=== PATIENT | female | born 1980 | race African-American/Black ===

== ENCOUNTER 2020-01-11 18:36 | Emergency (ER) | payer MEDICAID, OTHER ==
[2020-01-11] MEDS ORDERED: IBUPROFEN 800 MG TABLET PO ONE (19:13)
[2020-01-11] MEDS ORDERED: NORMAL SALINE 1000 ML 1,000 ML IV ONE (19:13)
--- NOTE | 2020-01-11 19:14 | ER Document Report ---
ED Medical Screen (RME) - General Chief Complaint: Weakness Stated Complaint: WEAKNESS Time Seen by Provider: 01/11/20 19:07 Primary Care Provider: LES BERNAL [Primary Care Provider] - Follow up as needed Information source: Patient Notes: Patient presents complaining of fever for the past 5 days with nausea and dark- colored urine. Patient reports chills. Patient denies any pain symptoms. Patient denies any cough or cold symptoms. Patient states she had a headache 5 days ago but none since then. I have greeted and performed a rapid initial assessment of this patient. A comprehensive ED assessment and evaluation of the patient, analysis of test results and completion of the medical decision making process will be conducted by additional ED providers. Physical Exam - General General appearance: Appears well, Alert In distress: None - Respiratory Respiratory status: No respiratory distress. No: Tachypnea Doctor's Discharge - Discharge Referrals: LES BERNAL [Primary Care Provider] - Follow up as needed
[2020-01-11 21:05] LABS: ABSOLUTE BASOPHILS # (AUTO) 0.1 10^3/uL (0.0-0.2); ABSOLUTE LYMPHOCYTES (AUTO) 2.7 10^3/uL (0.5-4.7); ABSOLUTE MONOCYTES (AUTO) 0.8 10^3/uL (0.1-1.4); ABSOLUTE NEUT (AUTO) 5.5 10^3/uL (1.7-8.2); BASOPHILS % (AUTO) 0.6 % (0-2); EOSINOPHILS % (AUTO) 0.4 % (0-6); HEMATOCRIT 31.8 % (36.0-47.0); HEMOGLOBIN 10.7 g/dL (12.0-15.5); LYMPHOCYTES % (AUTO) 29.9 % (13-45); MEAN CORPUSCULAR HEMOGLOBIN 28.8 pg (27.0-33.4); MEAN CORPUSCULAR HGB CONC 33.6 g/dL (32.0-36.0); MEAN CORPUSCULAR VOLUME 86 fl (80-97); MONOCYTES % (AUTO) 8.5 % (3-13); PLATELET COUNT 344 10^3/uL (150-450); RED BLOOD COUNT 3.72 10^6/uL (3.72-5.28); RED CELL DISTRIBUTION WIDTH 14.4 % (11.5-14.0); SEGMENTED NEUTROPHILS % (AUTO) 60.6 % (42-78); TOTAL CELLS COUNTED % (AUTO) 100 %
[2020-01-11 21:22] LABS: ALBUMIN 3.8 g/dL (3.5-5.0); ALKALINE PHOSPHATASE 124 U/L (38-126); ANION GAP 9 (5-19); ASPARTATE AMINO TRANSFERASE 22 U/L (14-36); BILIRUBIN,DIRECT 0.3 mg/dL (0.0-0.4); BILIRUBIN,TOTAL 0.9 mg/dL (0.2-1.3); BLOOD UREA NITROGEN 8 mg/dL (7-20); CALCIUM 9.1 mg/dL (8.4-10.2); CARBON DIOXIDE 30 mmol/L (22-30); CHLORIDE 101 mmol/L (98-107); GLUCOSE 105 mg/dL (75-110); POTASSIUM 3.6 mmol/L (3.6-5.0); TOTAL PROTEIN 7.9 g/dL (6.3-8.2)
--- NOTE | 2020-01-11 22:05 | ER Document Report ---
ED General - General Chief Complaint: Fever Stated Complaint: WEAKNESS Time Seen by Provider: 01/11/20 19:07 Primary Care Provider: LES BERNAL [NO LOCAL MD] - Follow up as needed Notes: Patient is a 39-year-old -German female with no significant past medical history who presents to the emergency department with a chief complaint of fever, nausea and dark-colored urine for the past 5 days. The patient repo rts this was a shock to her because she works from home and has very little to no outside contact. She states she felt hot the first day and had low-grade temperatures. She states they fluctuated up to about 102 Fahrenheit. She reports control with [id number] antipyretics. States that the fevers tend to spike more at night when she is laying in bed trying to sleep. She does admit to some scant chills. Also admits to some scant nausea associated and reports that she is noticed her urine was darker than normal lately and had a foul odor recently. She denies any vaginal bleeding or discharge. She reports that the most person she has contact with is her mother who is a dialysis pat ient because she drives her to and from dialysis 3 days a week. She reports that her mother is well without illness and has had no known contacts herself to [place] [id number]. Patient denies any headache, vomiting, diarrhea, vaginal bleeding, vaginal discharge, abdominal pain, recent travel or any other pain, complaints or concerns at this time. - Related Data Allergies/Adverse Reactions: No Known Allergies Allergy (Unverified 01/11/20 20:48) Past Medical History - General Information source: Patient - Social History Smoking Status: Never Smoker Chew tobacco use (# tins/day): No Frequency of alcohol use: None Drug Abuse: None Family History: Reviewed & Not Pertinent Review of Systems - Review of Systems Constitutional: Fever EENT: denies: Throat pain Cardiovascular: denies: Lightheaded Respiratory: denies: Cough Gastrointestinal: denies: Vomiting Genitourinary: denies: Pain Musculoskeletal: denies: Neck pain Skin: denies: Rash Hematologic/Lymphatic: denies: Easy bruising Neurological/Psychological: denies: Headaches Physical Exam - Vital signs Vitals: Temp 100.2 F 01/11/20 19:13 - General General appearance: Appears well, Alert In distress: None - HEENT Head: Normocephalic, Atraumatic Eyes: Normal Conjunctiva: Normal Extraocular movements intact: Yes Eyelashes: Normal Pupils: PERRL Ears: Normal External canal: Normal Tympanic membrane: Normal Nasal: Normal Mouth/Lips: Normal Mucous membranes: Normal Pharynx: Normal Neck: Normal, Supple - Respiratory Respiratory status: No respiratory distress Chest status: Nontender Breath sounds: Normal Chest palpation: Normal - Cardiovascular Rhythm: Regular Heart sounds: Normal auscultation - Abdominal Inspection: Normal Distension: No distension Bowel sounds: Normal Tenderness: Nontender Organomegaly: No organomegaly - Extremities General upper extremity: Normal color. No: Tender, Edema General lower extremity: Normal color. No: Tender, Edema - Neurological Neuro grossly intact: Yes Cognition: Normal Orientation: AAOx4 - Psychological Associated symptoms: Normal affect, Normal mood - Skin Skin Temperature: Warm Skin Moisture: Dry Skin Color: Normal Course - Re-evaluation Re-evalutation: 01/11/20 23:28 X-ray negative for acute process. Laboratory work showing no acute emergent findings. Urinalysis showing significant urinary tract infection. This seems to be the obvious source of the patient's complaints. At this point she will be treated for pyelonephritis given the fevers and associated symptoms. Given 1 g Rocephin IV here after her liter of saline. She will be sent home on Bactrim. Given a prescription for Zofran as well. Encouraged her to push clear fluids. Counseled her regarding the importance of outpatient follow-up and advised that she return here or any ER immediately with any new, persistent or worsening symptoms. She verbalized understood and agreed. - Vital Signs Vital signs: Temp Pulse Resp BP Pulse Ox 98.4 F 103 H 16 152/80 H 97 01/11/20 21:48 01/11/20 19:16 01/11/20 19:16 01/11/20 19:16 01/11/20 19:16 - Laboratory Result Diagrams: 01/11/20 20:52 01/11/20 20:52 Laboratory results interpreted by me: 01/11/20 01/11/20 20:52 22:55 Hgb 10.7 L Hct 31.8 L RDW 14.4 H Urine Protein 100 H Urine Blood MODERATE H Urine Urobilinogen 4.0 H Ur Leukocyte Esterase LARGE H Urine Ascorbic Acid 40 H Discharge - Discharge Clinical Impression: Pyelonephritis Condition: Stable Disposition: HOME, SELF-CARE Instructions: Pyelonephritis ([facility]), Trimethoprim-Sulfa ([facility]), Rocephin ([facility]) Additional Instructions: Follow-up with your regular doctor in 2 to 3 days for reevaluation. Return here or any ER immediately with any new, persistent or worsening symptoms. Prescriptions: Sulfamethoxazole/Trimethoprim [Bactrim Ds Tablet] 1 each PO BID #14 tablet Ondansetron [Zofran Odt 4 mg Tablet] 4 mg PO Q8 PRN #20 tab.rapdis PRN Reason: Referrals: LOCALMD,NO [NO LOCAL MD] - Follow up as needed
--- NOTE | 2020-01-11 22:30 | RADIOLOGY REPORT (SQ) ---
EXAM DESCRIPTION: X-ray, single view of the chest CLINICAL HISTORY: 39 years Female, fever COMPARISON: None. FINDINGS: Lungs: Lungs are clear. No pneumonia or edema. No pneumothorax or pleural effusion. Mediastinum: Cardiac and mediastinal silhouette are normal. Bones: Osseous structures are normal. IMPRESSION: No acute process. No pneumonia or edema.
[2020-01-11 23:16] LABS: APPEARANCE,URINE CLOUDY; BILIRUBIN,URINE NEGATIVE (NEGATIVE); GLUCOSE, URINE NEGATIVE (NEGATIVE); KETONES,URINE NEGATIVE (NEGATIVE); LEUKOCYTE ESTERASE,URINE LARGE (NEGATIVE); NITRITE,URINE NEGATIVE (NEGATIVE); PROTEIN,URINE 100 mg/dL (NEGATIVE); URINE SPECIFIC GRAVITY 1.024
[2020-01-11 23:17] LABS: COLOR,URINE DARK YELLOW
[2020-01-11] MEDS ORDERED: CEFTRIAXONE 1 GM/D5W RTU 50 ML IV ONE (23:28)
[2020-01-11] MEDS ORDERED: CEFTRIAXONE INJ 1000 MG VIAL IV ONE (23:34)
[2020-01-12] VITALS: BP 114/71
== END 2020-01-12 | disposition home or self-care (01) ==
LOC: ER 18:36
DX: R50.9 Fever, unspecified (principal); R53.1 Weakness; R11.0 Nausea; R39.198 Other difficulties with micturition
CPT/HCPCS: 99284; 96361; 96365; 36415; 87040; 84703; 85025; 87077; 80053; 81001; 87186; 87150 ×26; 71045; J0696; J7030

== ENCOUNTER 2020-01-14 15:44 | Inpatient (IN) | payer SELFPAY ==
--- NOTE | 2020-01-14 16:53 | ER Document Report ---
ED Medical Screen (RME) - General Chief Complaint: Abnormal Lab Results Stated Complaint: ABNORMAL LABS Time Seen by Provider: 01/14/20 16:46 Mode of Arrival: Ambulatory Information source: Patient Notes: 39-year-old female presented to ED for positive blood cultures on 10 January. She states that both sets of blood cultures were positive for E. coli. She did have a recent UTI with sepsis. She states that the flank pain is a 4 out of 5 with nausea vomiting and fatigue. She states she has had 3 doses of Bactrim. She states she is no longer having fevers but continues to have the nausea vomiting and weakness. She is alert oriented respirations regular nonlabored speaking in full sentences. She states her last menstrual period was January 05. States only surgery she has had is keloids removed. I have greeted and performed a rapid initial assessment of this patient. A comprehensive ED assessment and evaluation of the patient, analysis of test results and completion of medical decision making process will be conducted by an additional ED providers. - Related Data Allergies/Adverse Reactions: No Known Allergies Allergy (Unverified 01/11/20 20:48) Physical Exam - Vital signs Vitals: Temp Pulse Resp BP Pulse Ox 98.5 F 104 H 20 152/86 H 98 01/14/20 16:08 01/14/20 16:08 01/14/20 16:08 01/14/20 16:08 01/14/20 16:08 Course - Vital Signs Vital signs: Temp Pulse Resp BP Pulse Ox 98.5 F 104 H 20 152/86 H 98 01/14/20 16:08 01/14/20 16:08 01/14/20 16:08 01/14/20 16:08 01/14/20 16:08
[2020-01-14 18:17] LABS: ABSOLUTE BASOPHILS # (AUTO) 0.1 10^3/uL (0.0-0.2); ABSOLUTE EOSINOPHILS # (AUTO) 0.1 10^3/uL (0.0-0.6); ABSOLUTE LYMPHOCYTES (AUTO) 3.6 10^3/uL (0.5-4.7); ABSOLUTE MONOCYTES (AUTO) 0.5 10^3/uL (0.1-1.4); ABSOLUTE NEUT (AUTO) 3.7 10^3/uL (1.7-8.2); BASOPHILS % (AUTO) 1.3 % (0-2); HEMATOCRIT 30.9 % (36.0-47.0); HEMOGLOBIN 10.3 g/dL (12.0-15.5); LYMPHOCYTES % (AUTO) 45.2 % (13-45); MEAN CORPUSCULAR HEMOGLOBIN 28.7 pg (27.0-33.4); MEAN CORPUSCULAR HGB CONC 33.5 g/dL (32.0-36.0); MEAN CORPUSCULAR VOLUME 86 fl (80-97); MONOCYTES % (AUTO) 5.9 % (3-13); PLATELET COUNT 451 10^3/uL (150-450); RED BLOOD COUNT 3.61 10^6/uL (3.72-5.28); RED CELL DISTRIBUTION WIDTH 14.6 % (11.5-14.0); SEGMENTED NEUTROPHILS % (AUTO) 46.6 % (42-78); TOTAL CELLS COUNTED % (AUTO) 100 %; WHITE BLOOD COUNT 7.9 10^3/uL (4.0-10.5)
[2020-01-14 18:33] LABS: APPEARANCE,URINE SLIGHTLY-CLOUDY; BILIRUBIN,URINE NEGATIVE (NEGATIVE); COLOR,URINE YELLOW; GLUCOSE, URINE NEGATIVE (NEGATIVE); KETONES,URINE NEGATIVE (NEGATIVE); LEUKOCYTE ESTERASE,URINE LARGE (NEGATIVE); NITRITE,URINE NEGATIVE (NEGATIVE); PROTEIN,URINE NEGATIVE (NEGATIVE); URINE SPECIFIC GRAVITY 1.015
[2020-01-14 18:57] LABS: ALBUMIN 3.8 g/dL (3.5-5.0); ALKALINE PHOSPHATASE 107 U/L (38-126); ANION GAP 8 (5-19); ASPARTATE AMINO TRANSFERASE 31 U/L (14-36); BILIRUBIN,DIRECT 0.4 mg/dL (0.0-0.4); BILIRUBIN,TOTAL 0.7 mg/dL (0.2-1.3); BLOOD UREA NITROGEN 9 mg/dL (7-20); CALCIUM 9.3 mg/dL (8.4-10.2); CARBON DIOXIDE 28 mmol/L (22-30); CHLORIDE 103 mmol/L (98-107); GLUCOSE 94 mg/dL (75-110); POTASSIUM 4.6 mmol/L (3.6-5.0); TOTAL PROTEIN 7.7 g/dL (6.3-8.2)
--- NOTE | 2020-01-14 19:41 | RADIOLOGY REPORT (SQ) ---
EXAM DESCRIPTION: CT ABD/PELVIS WITH IV ONLY IMAGES COMPLETED DATE/TIME: 01/14/2020 7:28 pm REASON FOR STUDY: Recent UTI, flank pain, positive blood cultures COMPARISON: None. TECHNIQUE: CT scan of the abdomen and pelvis performed using helical scanning technique with dynamic intravenous contrast injection. No oral contrast. Images reviewed with lung, soft tissue, and bone windows. Reconstructed coronal and sagittal MPR images reviewed. Delayed images for evaluation of the urinary system also acquired. All images stored on PACS. All CT scanners at this facility use dose modulation, iterative reconstruction, and/or weight based d osing when appropriate to reduce radiation dose to as low as reasonably achievable (ALARA). [facility]: Dose Right [facility]: CareDose [facility]: Dose Right [facility]: Teradose 4D [facility]: InRiver CONTRAST TYPE AND DOSE: contrast/concentration: Isovue 350.00 mmol/ml; Total Contrast Delivered: 100 .0 ml; Total Saline Delivered: 54.4 ml RENAL FUNCTION: None required. The patient is less than 50 years old. RADIATION DOSE: CT Rad equipment meets quality standard of care and radiation dose reduction techniq ues were employed. CTDIvol: 19.2 - 21.1 mGy. DLP: 2179 mGy-cm.. LIMITATIONS: None. FINDINGS: LOWER CHEST: No significant findings. No nodules or infiltrates. LIVER: Normal size. No masses. No dilated ducts. SPLEEN: Normal size. No focal lesions. PANCREAS: No masses. No significant calcifications. No adjacent inflammation or peripancreatic fluid collections. Pancreatic duct not dilated. GALLBLADDER: No identified stones by CT criteria. No inflammatory changes to suggest cholecystitis. ADRENAL GLANDS: No significant masses or asymmetry. RIGHT KIDNEY AND URETER: No solid masses. No significant calcifications. No hydronephrosis or hyd roureter. LEFT KIDNEY AND URETER: No solid masses. No significant calcifications. No hydronephrosis or hydr oureter. AORTA AND VESSELS: No aneurysm. No dissection. Renal arteries, SMA, celiac without stenosis. RETROPERITONEUM: No retroperitoneal adenopathy, hemorrhage or masses. BOWEL AND PERITONEAL CAVITY: No masses or inflammatory changes. No free fluid or peritoneal masses. APPENDIX: Normal. PELVIS: No mass. No free fluid. Normal bladder. ABDOMINAL WALL: No masses. No hernias. BONES: No significant or acute findings. OTHER: No other significant finding. IMPRESSION: NO SIGNIFICANT OR ACUTE FINDING IN THE ABDOMEN OR PELVIS ON CT SCAN WITH IV CONTRAST. TECHNICAL DOCUMENTATION: JOB ID: [id number] Quality ID # [id number]: Final reports with documentation of one or more dose reduction techniques (e.g., Au tomated exposure control, adjustment of the mA and/or kV according to patient size, use of iterative reconstruction technique) 2010 [employer]- All Rights Reserved Reading location - IP/workstation name: [email or web address]
--- NOTE | 2020-01-14 21:14 | ER Document Report ---
ED Medical Screen (RME) - General Chief Complaint: Abnormal Lab Results Stated Complaint: ABNORMAL LABS Time Seen by Provider: 01/14/20 16:46 Mode of Arrival: Ambulatory Notes: 01/14/20 16:53 - ED Nursing Note by JENARO GONZALES Num: [id number] : 1980 Patient Age: 39 pt comes to ed from home via pov brought by self for c/o bilateral flank pain and positive blood cultures. pt seen in this ed on 01/11/2020 for peylo and given bactrim (on dose 3) when presented with fevers and dark urine. pt called back today for +ecoli x2 sxets. pt reports nausea, fatigue and non improvement. ED Medical Screen (Natalie prince) - General Chief Complaint: Abnormal Lab Results Stated Complaint: ABNORMAL LABS Time Seen by Provider: 01/14/20 16:46 Mode of Arrival: Ambulatory Information source: Patient Notes: 39-year-old female presented to ED for positive blood cultures on 10 January. She states that both sets of blood cultures were positive for E. coli. She did have a recent UTI with sepsis. She states that the flank pain is a 4 out of 5 with nausea vomiting and fatigue. She states she has had 3 doses of Bactrim. She states she is no longer having fevers but continues to have the nausea vomiting and weakness. She is alert oriented respirations regular nonlabored speaking in full sentences. She states her last menstrual period was January 05. States only surgery she has had is keloids removed. MY NOTES 39-year-old black female arrives with chief complaint of bilateral flank pain fevers dysuria nausea fatigue and patient has difficulty walking because of weakness. Patient's E. coli that grew out on her blood culture was resistant to sulfa drugs and to Augmentin. She received a Rocephin shot 2 days ago. Patient's urine today is positive for UTI. Patient reports her symptoms began last Tuesday with her awakening at 02 100 with right flank pain then by Tuesday patient began to get fevers on and off 103-104. Patient is from [place]. TRAVEL OUTSIDE OF THE [place] IN LAST 30 DAYS: No - HPI Onset: Yesterday - Related Data Allergies/Adverse Reactions: No Known Allergies Allergy (Unverified 01/11/20 20:48) Home Medications: womens multivitamin Past Medical History - General Information source: Patient - Social History Cigarette use (# per day): No Chew tobacco use (# tins/day): No Frequency of alcohol use: None Drug Abuse: None Lives with: Family Family history: Reviewed & Not Pertinent Physical Exam - Vital signs Vitals: Temp Pulse Resp BP Pulse Ox 98.5 F 104 H 20 152/86 H 98 01/14/20 16:08 01/14/20 16:08 01/14/20 16:08 01/14/20 16:08 01/14/20 16:08 Interpretation: Hypertensive, Tachycardic - General General appearance: Alert - HEENT Head: Normocephalic, Atraumatic Eyes: Normal Pupils: PERRL Mouth/Lips: Normal Mucous membranes: Normal Pharynx: Normal Neck: Normal - Respiratory Respiratory status: No respiratory distress Chest status: Nontender Breath sounds: Normal Chest palpation: Normal - Cardiovascular Rhythm: Regular Heart sounds: Normal auscultation Murmur: No - Abdominal Inspection: Morbidly Obese Distension: No distension Bowel sounds: Normal Tenderness: Nontender Organomegaly: No organomegaly - Rectal Hemorrhoids: Other - deferred - Genitourinary Bimanuel exam: Other - deferred - Back Back: CVA tenderness - right sided - Extremities General upper extremity: Normal inspection General lower extremity: Normal inspection - Neurological Neuro grossly intact: Yes Cognition: Normal Orientation: AAOx4 Jolo Coma Scale Eye Opening: Spontaneous Jolo Coma Scale Verbal: Oriented Keri Coma Scale Motor: Obeys Commands Jolo Coma Scale Total: 15 Speech: Normal Motor strength normal: LUE, RUE, LLE, RLE Sensory: Normal - Psychological Associated symptoms: Normal affect - Skin Skin Temperature: Warm Skin Moisture: Dry Course - Vital Signs Vital signs: Temp Pulse Resp BP Pulse Ox 98.5 F 104 H 20 152/86 H 98 01/14/20 16:08 01/14/20 16:08 01/14/20 16:08 01/14/20 16:08 01/14/20 16:08 - Laboratory Result Diagrams: 01/14/20 17:55 01/14/20 17:55 Laboratory results interpreted by me: 01/14/20 01/14/20 16:48 17:55 RBC 3.61 L Hgb 10.3 L Hct 30.9 L RDW 14.6 H Plt Count 451 H Lymph % (Auto) 45.2 H Urine Urobilinogen 4.0 H Ur Leukocyte Esterase LARGE H Urine Ascorbic Acid 20 H Critical Care Note - Critical Care Note Comments: Discussed this case with Dr. Francois and he advised CT abdomen pelvis/actually he returned call at [address] was necessary because 1 had been done on the last visit. Doctor's Discharge - Discharge Clinical Impression: Pyelonephritis, Bacteremia UTI (urinary tract infection) Qualifiers: Urinary tract infection type: acute pyelonephritis Qualified Code(s): N10 - Acute pyelonephritis Condition: Good Disposition: ADMITTED INPATIENT Additional Instructions: Admit patient to second floor as per supervisors directions
[2020-01-14] MEDS ORDERED: VANCOMYCIN HCL INJ 1000 MG VIAL IV ONE (21:18)
[2020-01-14] MEDS ORDERED: NORMAL SALINE 1000 ML 1,000 ML IV ONE (21:22)
[2020-01-14] MEDS ORDERED: LEVOFLOXACIN 750 MG/D5W RTU 750 MG/150 ML RTUPB IV ONE (22:00)
[2020-01-14] MEDS ORDERED: ACETAMINOPHEN 325 MG TABLET PO PRN (22:19)
[2020-01-14] MEDS ORDERED: PROMETHAZINE HCL INJ 25 MG/1 ML VIAL IV PRN (22:19)
[2020-01-14] MEDS ORDERED: IPRATROPIUM/ALBUTEROL 0.5-2.5 MG/3 ML AMPUL NEB PRN (22:19)
[2020-01-14] MEDS ORDERED: OXYCODONE-ACETAMINOPHEN 5-325 MG TABLET PO PRN (22:19)
[2020-01-14] MEDS ORDERED: PIPERACILLIN/TAZOBACTAM 3.375 GM VIAL IV PRN (22:23)
[2020-01-14] MEDS: FAMOTIDINE 20 MG TABLET PO SCH (23:00)
--- NOTE | 2020-01-15 00:06 | PDOC H&P ---
History of Present Illness Admission Date/PCP: 01/14/20 22:25 History of Present Illness: ELE CABRAL is a 39 year old female no significant past medical history who presented to ED on 01/11/2020 complaining of right-sided flank pain, generalized weakness, fever and chills, blood culture and urine culture were obtained, patient was sent home on p.o. Bactrim. Today her blood culture came back positive for E. coli pansensitive and patient was advised to report to ED. Patient is stating that she took about 2 days of p.o. Bactrim feeling much better however she still feels warm and having right flank pain with generalized weakness, denies any nausea, vomiting, chest pain, chills, abdominal pain, diarrhea, constipation or any urinary symptoms. In the ED repeat UA was positive for leukocyte esterase, CT abdomen and pelvis was negative for any acute abnormalities. Hospital was consulted for admission. Social History Lives with: Family Smoking Status: Never Smoker Electronic Cigarette use?: No Family History Family History: Reviewed & Not Pertinent Parental Family History Reviewed: Yes Children Family History Reviewed: Yes Sibling(s) Family History Reviewed.: Yes Medication/Allergy Home Medications: Ondansetron [Zofran Odt 4 mg Tablet] 4 mg PO Q8 PRN #20 tab.rapdis 01/11/20 Sulfamethoxazole/Trimethoprim [Bactrim Ds Tablet] 1 each PO BID #14 tablet 01/11/20 Allergies/Adverse Reactions: No Known Allergies Allergy (Unverified 01/11/20 20:48) Review of Systems Review of Systems: as per hpi Physical Exam Vital Signs: Temp Pulse Resp BP Pulse Ox 98.2 F 91 18 140/82 H 97 01/14/20 23:13 01/14/20 23:13 01/14/20 23:13 01/14/20 23:13 01/14/20 23:13 Intake & Output 01/13/20 01/14/20 01/15/20 06:59 06:59 06:59 Weight 144.1 kg General appearance: PRESENT: no acute distress, morbidly obese Head exam: PRESENT: atraumatic, normocephalic Neck exam: ABSENT: carotid bruit, JVD, lymphadenopathy, thyromegaly Respiratory exam: PRESENT: clear to auscultation curtis. ABSENT: rales, rhonchi, wheezes Cardiovascular exam: PRESENT: RRR. ABSENT: diastolic murmur, rubs, systolic murmur GI/Abdominal exam: PRESENT: normal bowel sounds, soft. ABSENT: distended, guarding, mass, organolmegaly, rebound, tenderness Gentrourinary exam: PRESENT: other - Right costovertebral tenderness. Neurological exam: PRESENT: alert, awake, oriented to person, oriented to place, oriented to time, oriented to situation, CN II-XII grossly intact. ABSENT: motor sensory deficit Results Laboratory Results: 01/14/20 17:55 01/14/20 17:55 01/14/20 01/14/20 01/14/20 16:48 17:55 17:55 WBC 7.9 RBC 3.61 L Hgb 10.3 L Hct 30.9 L MCV 86 MCH 28.7 MCHC 33.5 RDW 14.6 H Plt Count 451 H Seg Neutrophils % 46.6 Sodium 139.2 Potassium 4.6 Chloride 103 Carbon Dioxide 28 Anion Gap 8 BUN 9 Creatinine 0.64 Est GFR ( Amer) > 60 Glucose 94 Calcium 9.3 Total Bilirubin 0.7 AST 31 Alkaline Phosphatase 107 Total Protein 7.7 Albumin 3.8 Urine Color YELLOW Urine Appearance SLIGHTLY-CLOUDY Urine pH 6.0 Ur Specific [place] 1.015 Urine Protein NEGATIVE Urine Glucose (UA) NEGATIVE Urine Ketones NEGATIVE Urine Blood NEGATIVE Urine Nitrite NEGATIVE Ur Leukocyte Esterase LARGE H Urine WBC (Auto) 34 Urine RBC (Auto) 10 Impressions: Abdomen/Pelvis CT 01/14/20 16:51 IMPRESSION: NO SIGNIFICANT OR ACUTE FINDING IN THE ABDOMEN OR PELVIS ON CT SCAN WITH IV CONTRAST. Assessment and Plan - Diagnosis (1) Bacteremia Is this a current diagnosis for this admission?: Yes Plan: E. coli pansensitive. Likely due to pyelonephritis. CT abdomen pelvis with contrast no acute abnormalities. Patient may need 7 to 14 days of IV antibiotics depending on clinical improvement. Some E. coli's are noted to be resistant to levofloxacin, third and fourth generation cephalosporin. We will start on Zosyn IV, repeat urine and blood culture. (2) Pyelonephritis Is this a current diagnosis for this admission?: Yes Plan: Due to E. coli pansensitive. Failed outpatient p.o. Bactrim. CT abdomen pelvis with contrast negative for any acute abnormalities. Blood culture from previous admission is positive for pansensitive E. coli. Patient may need 7 to 14 days of IV antibiotics depending on clinical improvement. Some E. coli's are noted to be resistant to levofloxacin, third and fourth generation cephalosporin. We will start on Zosyn IV, repeat urine and blood culture. (3) Morbid obesity Is this a current diagnosis for this admission?: Yes Plan: BMI 52.9. We will obtain TSH, lipid panel and A1c. Diet and lifestyle modification recommended. - Time Time Spent with patient: 35 or more minutes Medications reviewed and adjusted accordingly: Yes Anticipated Discharge Disposition: Home, Self Care Anticipated Discharge Timeframe: within 72 hours
[2020-01-15] MEDS: NORMAL SALINE 1000 ML 1,000 ML IV PRN ×2 (01:10→16:17)
[2020-01-15] MEDS: PIPERACILLIN SODIUM/TAZOBACTAM 3.375 GM in NORMAL SALINE 100 ML IV SCH ×4 (01:10→17:31)
[2020-01-15] MEDS: ONDANSETRON HCL INJ/PF 4 MG/2 ML SDV IV PRN ×2 (01:50→16:22)
[2020-01-15 06:07] LABS: ABSOLUTE EOSINOPHILS # (AUTO) 0.1 10^3/uL (0.0-0.6); ABSOLUTE LYMPHOCYTES (AUTO) 3.4 10^3/uL (0.5-4.7); ABSOLUTE MONOCYTES (AUTO) 0.5 10^3/uL (0.1-1.4); ABSOLUTE NEUT (AUTO) 3.7 10^3/uL (1.7-8.2); BASOPHILS % (AUTO) 0.5 % (0-2); HEMATOCRIT 29.7 % (36.0-47.0); HEMOGLOBIN 9.7 g/dL (12.0-15.5); LYMPHOCYTES % (AUTO) 44.5 % (13-45); MEAN CORPUSCULAR HEMOGLOBIN 28.1 pg (27.0-33.4); MEAN CORPUSCULAR HGB CONC 32.7 g/dL (32.0-36.0); MEAN CORPUSCULAR VOLUME 86 fl (80-97); MONOCYTES % (AUTO) 5.9 % (3-13); PLATELET COUNT 402 10^3/uL (150-450); RED BLOOD COUNT 3.46 10^6/uL (3.72-5.28); RED CELL DISTRIBUTION WIDTH 14.9 % (11.5-14.0); SEGMENTED NEUTROPHILS % (AUTO) 48.1 % (42-78); TOTAL CELLS COUNTED % (AUTO) 100 %; WHITE BLOOD COUNT 7.6 10^3/uL (4.0-10.5)
[2020-01-15 06:28] LABS: ALBUMIN 3.4 g/dL (3.5-5.0); ALKALINE PHOSPHATASE 103 U/L (38-126); ANION GAP 8 (5-19); ASPARTATE AMINO TRANSFERASE 29 U/L (14-36); BILIRUBIN,DIRECT 0.3 mg/dL (0.0-0.4); BILIRUBIN,TOTAL 0.5 mg/dL (0.2-1.3); BLOOD UREA NITROGEN 10 mg/dL (7-20); CALCIUM 8.9 mg/dL (8.4-10.2); CARBON DIOXIDE 28 mmol/L (22-30); CHLORIDE 104 mmol/L (98-107); GLUCOSE 103 mg/dL (75-110); POTASSIUM 3.9 mmol/L (3.6-5.0); TOTAL PROTEIN 7.2 g/dL (6.3-8.2)
[2020-01-15] MEDS: ENOXAPARIN SODIUM INJ 40 MG/0.4 ML DISP.SYRIN SUBCUT SCH (09:55)
[2020-01-15] MEDS: FAMOTIDINE 20 MG TABLET PO SCH ×2 (09:55→22:13)
--- NOTE | 2020-01-15 11:39 | PDOC PROGRESS REPORT ---
Subjective Progress Note for:: 01/15/20 Subjective:: History and physical exam reviewed lab findings reviewed. It is a 39-year-old female no significant past medical history, no prior history of urinary tract infection , no family history of kidney stone, was admitted in the ED for E. coli bacteremia. According to the patient she developed flank pain and flulike symptoms 6 days prior to admission. She went to the emergency room on Tuesday, diagnosed with urinary tract infection and was prescribed Bactrim blood cultures were drawn. She was called back on Tuesday because blood cultures grew E. coli and she was admitted for IV antibiotics. Day 2 of admission 01/14/20 -was seen and examined at bedside she denied any flank pain dysuria hematuria no nausea or vomiting. Good appetite. Currently on Zosyn, waiting blood culture and urine culture results. Renal ultrasound ordered to rule out kidney stones. CT abdomen and pelvis that was done was with IV contrast house hence will not show any kidney stones Reason For Visit: COMPLICATED UTI,GRAM NEGATIVE BACTEREMIA Physical Exam Vital Signs: Temp Pulse Resp BP Pulse Ox 97.5 F 85 16 119/72 100 01/15/20 08:05 01/15/20 07:22 01/15/20 07:22 01/15/20 07:22 01/15/20 07:22 Intake & Output 01/14/20 01/15/20 01/16/20 06:59 06:59 06:59 Intake Total 1200 Balance 1200 Weight 144.1 kg General appearance: PRESENT: no acute distress, cooperative, obese, well- developed, well-nourished Head exam: PRESENT: atraumatic, normocephalic Eye exam: PRESENT: conjunctiva pink, EOMI, PERRLA Ear exam: PRESENT: bleeding Mouth exam: PRESENT: moist Neck exam: PRESENT: full ROM. ABSENT: JVD, meningismus Respiratory exam: PRESENT: clear to auscultation curtis, unlabored. ABSENT: rales, rhonchi, wheezes Cardiovascular exam: PRESENT: RRR, +S1, +S2. ABSENT: diastolic murmur, systolic murmur Vascular exam: PRESENT: normal capillary refill GI/Abdominal exam: PRESENT: normal bowel sounds, soft, other - No CVA tenderness. ABSENT: distended, guarding Extremities exam: PRESENT: full ROM. ABSENT: pedal edema Musculoskeletal exam: PRESENT: full ROM Neurological exam: PRESENT: alert, awake, oriented to person, oriented to place, oriented to time, oriented to situation Psychiatric exam: PRESENT: normal mood Results Laboratory Results: 01/15/20 05:56 01/15/20 05:56 01/14/20 01/14/20 01/14/20 16:48 17:55 17:55 WBC 7.9 RBC 3.61 L Hgb 10.3 L Hct 30.9 L MCV 86 MCH 28.7 MCHC 33.5 RDW 14.6 H Plt Count 451 H Seg Neutrophils % 46.6 Sodium 139.2 Potassium 4.6 Chloride 103 Carbon Dioxide 28 Anion Gap 8 BUN 9 Creatinine 0.64 Est GFR ( Amer) > 60 Glucose 94 Calcium 9.3 Magnesium Total Bilirubin 0.7 AST 31 Alkaline Phosphatase 107 Total Protein 7.7 Albumin 3.8 Urine Color YELLOW Urine Appearance SLIGHTLY-CLOUDY Urine pH 6.0 Ur Specific [place] 1.015 Urine Protein NEGATIVE Urine Glucose (UA) NEGATIVE Urine Ketones NEGATIVE Urine Blood NEGATIVE Urine Nitrite NEGATIVE Ur Leukocyte Esterase LARGE H Urine WBC (Auto) 34 Urine RBC (Auto) 10 01/15/20 01/15/20 05:56 05:56 WBC 7.6 RBC 3.46 L Hgb 9.7 L Hct 29.7 L MCV 86 MCH 28.1 MCHC 32.7 RDW 14.9 H Plt Count 402 Seg Neutrophils % 48.1 Sodium 140.1 Potassium 3.9 Chloride 104 Carbon Dioxide 28 Anion Gap 8 BUN 10 Creatinine 0.69 Est GFR ( Amer) > 60 Glucose 103 Calcium 8.9 Magnesium 2.3 Total Bilirubin 0.5 AST 29 Alkaline Phosphatase 103 Total Protein 7.2 Albumin 3.4 L Urine Color Urine Appearance Urine pH Ur Specific [place] Urine Protein Urine Glucose (UA) Urine Ketones Urine Blood Urine Nitrite Ur Leukocyte Esterase Urine WBC (Auto) Urine RBC (Auto) Impressions: Abdomen/Pelvis CT 01/14/20 16:51 IMPRESSION: NO SIGNIFICANT OR ACUTE FINDING IN THE ABDOMEN OR PELVIS ON CT SCAN WITH IV CONTRAST. Assessment and Plan - Diagnosis (1) Gram-negative bacteremia Is this a current diagnosis for this admission?: Yes Plan: -Came in came in the ED January 10 for UTI. Discharged on Bactrim. Blood cultures were sent, no urine cultures -Blood culture grew E. coli on the hence patient was called back for IV antibiotics -Source likely UTI -Blood culture 01/13 pending -Urine culture 01/13 pending -Plan to continue Zosyn for today. Probably be able to switch to oral antibiotics tomorrow pending culture results (2) UTI (urinary tract infection) Qualifiers: Urinary tract infection type: acute pyelonephritis Qualified Code(s): N10 - Acute pyelonephritis Is this a current diagnosis for this admission?: Yes Plan: -Came in the ED January 10 for UTI. -UA positive for leukocyte esterase and WBC -Discharged on Bactrim twice a day. Blood culture that was drawn grew E. coli, no urine culture -CT abdomen and pelvis with IV contrast normal -We will order ultrasound renal -Continue Zosyn (3) Morbid obesity Is this a current diagnosis for this admission?: Yes Plan: BMI 52.9. We will obtain TSH, lipid panel and A1c. Diet and lifestyle modification recommended. - Plan Summary Summary: Plan to continue IV antibiotics for now pending blood culture and urine culture - Time Time Spent with patient: 25-34 minutes Medications reviewed and adjusted accordingly: Yes Anticipated Discharge Disposition: Home, Self Care Anticipated Discharge Timeframe: within 48 hours
--- NOTE | 2020-01-15 13:52 | RADIOLOGY REPORT (SQ) ---
EXAM DESCRIPTION: U/S RETROPERITON (RENAL/AORTA) IMAGES COMPLETED DATE/TIME: 01/15/2020 1:43 pm REASON FOR STUDY: r/o kidney stone COMPARISON: CT dated 01/14/2020. TECHNIQUE: Dynamic and static grayscale images acquired of the kidneys and bladder and recorded on P ACS. Additional selected color Doppler and spectral images recorded. LIMITATIONS: None. FINDINGS: RIGHT KIDNEY: Normal size. Normal echogenicity. No solid or suspicious masses. No hydronep hrosis. No calcifications. LEFT KIDNEY: Normal size. Normal echogenicity. 1.3 cm cyst in the upper pole. No solid or suspicio us masses. No hydronephrosis. No calcifications. BLADDER: No masses. OTHER FINDINGS: No other significant finding. IMPRESSION: CYST IN THE LEFT KIDNEY. OTHERWISE UNREMARKABLE RENAL AND BLADDER ULTRASOUND. TECHNICAL DOCUMENTATION: JOB ID: [id number] 2010 [employer]- All Rights Reserved Reading location - IP/workstation name: [email or web address]
[2020-01-16] MEDS: PIPERACILLIN SODIUM/TAZOBACTAM 3.375 GM in NORMAL SALINE 100 ML IV SCH ×3 (00:12→12:29)
--- NOTE | 2020-01-16 06:20 | PDOC PROGRESS REPORT ---
Subjective Progress Note for:: 01/16/20 Subjective:: History and physical exam reviewed lab findings reviewed. It is a 39-year-old female no significant past medical history, no prior history of urinary tract infection , no family history of kidney stone, was admitted in the ED for E. coli bacteremia. According to the patient she developed flank pain and flulike symptoms 6 days prior to admission. She went to the emergency room on Tuesday, diagnosed with urinary tract infection and was prescribed Bactrim blood cultures were drawn. She was called back on Tuesday because blood cultures grew E. coli and she was admitted for IV antibiotics. Day 2 of admission 01/15/20 -was seen and examined at bedside she denied any flank pain dysuria hematuria no nausea or vomiting. Good appetite. Currently on Zosyn, waiting blood culture and urine culture results. Renal ultrasound ordered to rule out kidney stones. CT abdomen and pelvis that was done was with IV contrast house hence will not show any kidney stones Day 3 admission 01/16/20 - patient was seen and examined at bedside. Looks comfortable in bed. Denies any dysuria, hematuria nausea/vomiting, flank pain. Able to take oral medications. Repeat blood culture negative for growth x 24 hrs. Patient afebrile for 48 hrs. Reason For Visit: COMPLICATED UTI,GRAM NEGATIVE BACTEREMIA Physical Exam Vital Signs: Temp Pulse Resp BP Pulse Ox 98.8 F 80 18 137/76 H 96 01/16/20 04:45 01/16/20 04:45 01/16/20 04:45 01/16/20 04:45 01/16/20 04:45 Intake & Output 01/14/20 01/15/20 01/16/20 06:59 06:59 06:59 Intake Total 1200 1540 Output Total 1200 Balance 1200 340 Weight 144.1 kg General appearance: PRESENT: no acute distress, cooperative, morbidly obese Head exam: PRESENT: atraumatic, normocephalic Eye exam: PRESENT: EOMI, PERRLA Mouth exam: PRESENT: moist Neck exam: PRESENT: full ROM. ABSENT: JVD Respiratory exam: PRESENT: clear to auscultation curtis, symmetrical, unlabored. ABSENT: crackles, tachypnea, wheezes Cardiovascular exam: PRESENT: RRR, +S1, +S2 Pulses: PRESENT: +2 pedal pulses bilateral GI/Abdominal exam: PRESENT: normal bowel sounds, soft. ABSENT: distended, tenderness Rectal exam: PRESENT: deferred Extremities exam: PRESENT: full ROM. ABSENT: calf tenderness Musculoskeletal exam: PRESENT: full ROM Neurological exam: PRESENT: alert, awake, oriented to person, oriented to place, oriented to time, oriented to situation Psychiatric exam: PRESENT: normal mood Skin exam: PRESENT: normal color Results Laboratory Results: 01/15/20 05:56 01/15/20 05:56 01/15/20 05:56 Sodium 140.1 Potassium 3.9 Chloride 104 Carbon Dioxide 28 Anion Gap 8 BUN 10 Creatinine 0.69 Est GFR ( Amer) > 60 Glucose 103 Calcium 8.9 Magnesium 2.3 Total Bilirubin 0.5 AST 29 Alkaline Phosphatase 103 Total Protein 7.2 Albumin 3.4 L Impressions: Abdomen/Pelvis CT 01/14/20 16:51 IMPRESSION: NO SIGNIFICANT OR ACUTE FINDING IN THE ABDOMEN OR PELVIS ON CT SCAN WITH IV CONTRAST. Renal Ultrasound 01/15/20 00:00 IMPRESSION: CYST IN THE LEFT KIDNEY. OTHERWISE UNREMARKABLE RENAL AND BLADDER ULTRASOUND. Assessment and Plan - Diagnosis (1) Gram-negative bacteremia Is this a current diagnosis for this admission?: Yes Plan: -Came in came in the ED January 10 for UTI. Discharged on Bactrim. Blood cultures were sent, no urine cultures -Blood culture grew E. coli on the hence patient was called back for IV antibiotics -Source likely UTI -Blood culture 01/13 negative x 1 -Urine culture 01/13 no growth x 1 - awaiting renal US -patient is afebrile x 48 hrs, able to tolerate diet, no nause/vomiting -Plan to continue Zosyn for 1 more dose, switch to oral cephalosphorin and discharge (2) UTI (urinary tract infection) Qualifiers: Urinary tract infection type: acute pyelonephritis Qualified Code(s): N10 - Acute pyelonephritis Is this a current diagnosis for this admission?: Yes Plan: -Came in the ED January 10 for UTI. -UA positive for leukocyte esterase and WBC -Discharged on Bactrim twice a day. Blood culture that was drawn grew E. coli, no urine culture -CT abdomen and pelvis with IV contrast normal -awaiting ultrasound renal -Continue zosyn 1 more dose, discharge on oral meds (3) Morbid obesity Is this a current diagnosis for this admission?: Yes - Plan Summary Summary: Plan to continue IV antibiotics for now pending blood culture and urine culture
[2020-01-16 06:42] LABS: ABSOLUTE EOSINOPHILS # (AUTO) 0.1 10^3/uL (0.0-0.6); ABSOLUTE LYMPHOCYTES (AUTO) 3.1 10^3/uL (0.5-4.7); ABSOLUTE MONOCYTES (AUTO) 0.4 10^3/uL (0.1-1.4); ABSOLUTE NEUT (AUTO) 4.2 10^3/uL (1.7-8.2); BASOPHILS % (AUTO) 0.3 % (0-2); EOSINOPHILS % (AUTO) 1.6 % (0-6); HEMATOCRIT 28.8 % (36.0-47.0); HEMOGLOBIN 9.5 g/dL (12.0-15.5); LYMPHOCYTES % (AUTO) 39.6 % (13-45); MEAN CORPUSCULAR HEMOGLOBIN 28.4 pg (27.0-33.4); MEAN CORPUSCULAR HGB CONC 33.2 g/dL (32.0-36.0); MEAN CORPUSCULAR VOLUME 86 fl (80-97); MONOCYTES % (AUTO) 5.2 % (3-13); PLATELET COUNT 439 10^3/uL (150-450); RED BLOOD COUNT 3.36 10^6/uL (3.72-5.28); RED CELL DISTRIBUTION WIDTH 14.6 % (11.5-14.0); SEGMENTED NEUTROPHILS % (AUTO) 53.3 % (42-78); TOTAL CELLS COUNTED % (AUTO) 100 %; WHITE BLOOD COUNT 7.9 10^3/uL (4.0-10.5)
[2020-01-16 06:59] LABS: ALBUMIN 3.3 g/dL (3.5-5.0); ALKALINE PHOSPHATASE 98 U/L (38-126); ANION GAP 8 (5-19); ASPARTATE AMINO TRANSFERASE 20 U/L (14-36); BILIRUBIN,DIRECT 0.2 mg/dL (0.0-0.4); BILIRUBIN,TOTAL 0.5 mg/dL (0.2-1.3); BLOOD UREA NITROGEN 9 mg/dL (7-20); CALCIUM 8.6 mg/dL (8.4-10.2); CARBON DIOXIDE 26 mmol/L (22-30); CHLORIDE 106 mmol/L (98-107); GLUCOSE 94 mg/dL (75-110); POTASSIUM 4.2 mmol/L (3.6-5.0); TRIGLYCERIDES 124 mg/dL (<150)
[2020-01-16 07:10] LABS: DIRECT LDL 75 mg/dL (<100)
[2020-01-16 09:23] VITALS: BP 130/74
[2020-01-16] MEDS: ONDANSETRON HCL INJ/PF 4 MG/2 ML SDV IV PRN (10:30)
[2020-01-16] MEDS: ENOXAPARIN SODIUM INJ 40 MG/0.4 ML DISP.SYRIN SUBCUT SCH (10:30)
[2020-01-16] MEDS: FAMOTIDINE 20 MG TABLET PO SCH (10:30)
--- NOTE | 2020-01-16 14:17 | PDOC DISCHARGE SUMMARY ---
Impression - Admit/DC Date/PCP Admission Date/Primary Care Provider: 01/14/20 22:25 Discharge Date: 01/16/20 - Discharge Diagnosis (1) Gram-negative bacteremia Is this a current diagnosis for this admission?: Yes (2) UTI (urinary tract infection) Is this a current diagnosis for this admission?: Yes (3) Morbid obesity Is this a current diagnosis for this admission?: Yes - Assessment Summary: - discharged on 5 more days of cefuroxime - Additional Information Resuscitation Status: Full Code Discharge Diet: As Tolerated Discharge Activity: Activity As Tolerated Prescriptions: Cefuroxime Axetil [Ceftin 500 mg Tablet] 1 tab PO BID 5 Days #20 tablet Home Medications: Multivitamin [Multiple Vitamins] 1 tab PO DAILY 01/15/20 Cefuroxime Axetil [Ceftin 500 mg Tablet] 1 tab PO BID 5 Days #20 tablet 01/16/20 History of Present Illiness History of Present Illness: ELE CABRAL is a 39 year old female It is a 39-year-old female no significant past medical history, no prior history of urinary tract infection , no family history of kidney stone, was admitted in the ED for E. coli bacteremia. Ac cording to the patient she developed flank pain and flulike symptoms 6 days prior to admission. She went to the emergency room on Tuesday, diagnosed with urinary tract infection and was prescribed Bactrim blood cultures were drawn. She was called back on Tuesday because blood cultures grew E. coli and she was admitted for IV antibiotics. Hospital Course Hospital Course: Patient was started on Zosyn IV pending blood cultures and urine cultures. She did not develop any fever nausea vomiting during the second day of admission. On the third day of admission blood culture did not grow any E. coli. Ultrasound negative for kidney stones. She remained afebrile for 48 hours tolerating oral diet and was stable enough to be discharged home on oral antib iotics. Physical Exam Vital Signs: Temp Pulse Resp BP Pulse Ox 98.2 F 74 14 130/74 H 100 01/16/20 08:00 01/16/20 09:50 01/16/20 09:50 01/16/20 08:00 01/16/20 09:50 Intake & Output 01/15/20 01/16/20 01/17/20 06:59 06:59 06:59 Intake Total 1200 1640 480 Output Total 1600 Balance 1200 40 480 Weight 144.1 kg 147.9 kg General appearance: PRESENT: no acute distress, cooperative Head exam: PRESENT: atraumatic, normocephalic Eye exam: PRESENT: EOMI, PERRLA Mouth exam: PRESENT: moist Neck exam: PRESENT: full ROM. ABSENT: JVD Respiratory exam: PRESENT: clear to auscultation curtis, symmetrical, unlabored. ABSENT: crackles, wheezes Cardiovascular exam: PRESENT: RRR, +S1, +S2 Pulses: PRESENT: +2 pedal pulses bilateral Vascular exam: PRESENT: normal capillary refill, pallor GI/Abdominal exam: PRESENT: soft. ABSENT: guarding, rebound, tenderness Rectal exam: PRESENT: deferred Extremities exam: PRESENT: full ROM Musculoskeletal exam: PRESENT: full ROM Neurological exam: PRESENT: alert, awake, oriented to person, oriented to place, oriented to time, oriented to situation Psychiatric exam: PRESENT: normal mood Results Laboratory Results: WBC 7.9 10^3/uL (4.0-10.5) 01/16/20 06:28 RBC 3.36 10^6/uL (3.72-5.28) L 01/16/20 06:28 Hgb 9.5 g/dL (12.0-15.5) L 01/16/20 06:28 Hct 28.8 % (36.0-47.0) L 01/16/20 06:28 MCV 86 fl (80-97) 01/16/20 06:28 MCH 28.4 pg (27.0-33.4) 01/16/20 06:28 MCHC 33.2 g/dL (32.0-36.0) 01/16/20 06:28 RDW 14.6 % (11.5-14.0) H 01/16/20 06:28 Plt Count 439 10^3/uL (150-450) 01/16/20 06:28 Lymph % (Auto) 39.6 % (13-45) 01/16/20 06:28 [place] % (Auto) 5.2 % (3-13) 01/16/20 06:28 Eos % (Auto) 1.6 % (0-6) 01/16/20 06:28 Baso % (Auto) 0.3 % (0-2) 01/16/20 06:28 Absolute Neuts (auto) 4.2 10^3/uL (1.7-8.2) 01/16/20 06:28 Absolute Lymphs (auto) 3.1 10^3/uL (0.5-4.7) 01/16/20 06:28 Absolute Monos (auto) 0.4 10^3/uL (0.1-1.4) 01/16/20 06:28 Absolute Eos (auto) 0.1 10^3/uL (0.0-0.6) 01/16/20 06:28 Absolute Basos (auto) 0.0 10^3/uL (0.0-0.2) 01/16/20 06:28 Seg Neutrophils % 53.3 % (42-78) 01/16/20 06:28 Sodium 140.4 mmol/L (137-145) 01/16/20 06:28 Potassium 4.2 mmol/L (3.6-5.0) 01/16/20 06:28 Chloride 106 mmol/L (98-107) 01/16/20 06:28 Carbon Dioxide 26 mmol/L (22-30) 01/16/20 06:28 Anion Gap 8 (5-19) 01/16/20 06:28 BUN 9 mg/dL (7-20) 01/16/20 06:28 Creatinine 0.65 mg/dL (0.52-1.25) 01/16/20 06:28 Est GFR ( Amer) > 60 (>60) 01/16/20 06:28 Est GFR (MDRD) Non-Af > 60 (>60) 01/16/20 06:28 Glucose 94 mg/dL (75-110) 01/16/20 06:28 Hemoglobin A1c % 4.8 % (4.7-6.0) 01/16/20 06:28 Calcium 8.6 mg/dL (8.4-10.2) 01/16/20 06:28 Magnesium 2.3 mg/dL (1.6-2.3) 01/15/20 05:56 Total Bilirubin 0.5 mg/dL (0.2-1.3) 01/16/20 06:28 Direct Bilirubin 0.2 mg/dL (0.0-0.4) 01/16/20 06:28 Neonat Total Bilirubin Not Reportable 01/16/20 06:28 Neonat Direct Bilirubin Not Reportable 01/16/20 06:28 Neonat Indirect Bili Not Reportable 01/16/20 06:28 AST 20 U/L (14-36) 01/16/20 06:28 ALT 14 U/L (<35) 01/16/20 06:28 Alkaline Phosphatase 98 U/L (38-126) 01/16/20 06:28 Total Protein 7.0 g/dL (6.3-8.2) 01/16/20 06:28 Albumin 3.3 g/dL (3.5-5.0) L 01/16/20 06:28 Triglycerides 124 mg/dL (<150) 01/16/20 06:28 Cholesterol 124.80 mg/dL (0-200) 01/16/20 06:28 LDL Cholesterol Direct 75 mg/dL (<100) 01/16/20 06:28 VLDL Cholesterol 25.0 mg/dL (10-31) 01/16/20 06:28 HDL Cholesterol 27 mg/dL (>40) L 01/16/20 06:28 TSH 1.22 uIU/mL (0.47-4.68) 01/16/20 06:28 Urine Color YELLOW 01/14/20 16:48 Urine Appearance SLIGHTLY-CLOUDY 01/14/20 16:48 Urine pH 6.0 (5.0-9.0) 01/14/20 16:48 Ur Specific [place] 1.015 01/14/20 16:48 Urine Protein NEGATIVE mg/dL (NEGATIVE) 01/14/20 16:48 Urine Glucose (UA) NEGATIVE mg/dL (NEGATIVE) 01/14/20 16:48 Urine Ketones NEGATIVE mg/dL (NEGATIVE) 01/14/20 16:48 Urine Blood NEGATIVE (NEGATIVE) 01/14/20 16:48 Urine Nitrite NEGATIVE (NEGATIVE) 01/14/20 16:48 Urine Bilirubin NEGATIVE (NEGATIVE) 01/14/20 16:48 Urine Urobilinogen 4.0 mg/dL (<2.0) H 01/14/20 16:48 Ur Leukocyte Esterase LARGE (NEGATIVE) H 01/14/20 16:48 Urine WBC (Auto) 34 /HPF 01/14/20 16:48 Urine RBC (Auto) 10 /HPF 01/14/20 16:48 Squamous Epi Cells Auto 6 /HPF 01/14/20 16:48 Urine Mucus (Auto) MANY /LPF 01/14/20 16:48 Urine Ascorbic Acid 20 (NEGATIVE) H 01/14/20 16:48 Impressions: Abdomen/Pelvis CT 01/14/20 16:51 IMPRESSION: NO SIGNIFICANT OR ACUTE FINDING IN THE ABDOMEN OR PELVIS ON CT SCAN WITH IV CONTRAST. Renal Ultrasound 01/15/20 00:00 IMPRESSION: CYST IN THE LEFT KIDNEY. OTHERWISE UNREMARKABLE RENAL AND BLADDER ULTRASOUND. Plan Plan of Treatment: Complete 5 days of p.o. cefuroxime 500 twice a day -advised increase oral fluid intake Time Spent: Less than 30 Minutes Stroke Is this a Stroke Patient?: No Acute Heart Failure - Is this a Heart Failure Patient?: No
== END 2020-01-16 15:00 | disposition home or self-care (01) | DRG 690 ==
LOC: ER 15:44 → EH 22:25 → 2N 01-15 00:42
PROVIDERS: ADMIT Internal Medicine; ATTEND Internal Medicine
DX: N10 Acute pyelonephritis (principal); R78.81 Bacteremia; Z68.43 Body mass index [BMI] 50.0-59.9, adult; E66.01 Morbid (severe) obesity due to excess calories; B96.20 Unspecified Escherichia coli [E. coli] as the cause of diseases classified elsewhere
CPT/HCPCS: 36415; 74177; 76770; 80053; 80061; 81001; 83036; 83735; 84443; 85025; 87040; 87086; 99285; J1650; J2405; J2543; J7030; J7050